=== PATIENT | female | born 2000 | race Caucasian/White ===

== ENCOUNTER 2023-02-21 04:03 | Emergency (ER) | payer BC, OTHER ==
[~2023-02-21] VITALS: Ht 165.1 cm; Wt 84.1 kg
[2023-02-21 04:09] VITALS: TEMP 98.1
[2023-02-21 04:23] LABS: BASO % 0.5 % (0.0-2.0); EOS # 0.1 K/mm3 (0.0-0.7); EOS % 1.7 % (0.0-4.0); GRAN # 3.4 K/mm3 (1.4-6.5); GRAN % 56.7 % (42.2-75.2); HEMOGLOBIN 11.9 g/dl (12.5-16.0); LYMPH # 1.9 K/mm3 (1.2-3.4); LYMPH % 31.1 % (20.0-51.0); MEAN CELL VOLUME 88 fl (80.0-100.0); MEAN CORPUSCULAR HEMOGLOBIN 28 pg (27-31); MEAN CORPUSCULAR HGB CONC 32 g/dl (33.0-37.0); MEAN PLATELET VOLUME 9.6 fl (7.4-10.4); MONO # 0.6 K/mm3 (0.1-0.6); MONO % 9.7 % (1.7-9.3); PLATELET COUNT 267 K/mm3 (130-400); REDCELL DISTRIBUTION WIDTH-CV 13.9 % (11.5-14.5)
[2023-02-21 04:25] LABS: HEMATOCRIT 36.9 % (37.0-47.0)
[2023-02-21 04:42] LABS: ALBUMIN 4.3 gm/dL (3.5-5.0); BILIRUBIN,TOTAL 0.5 mg/dL (0.2-1.2); CALCIUM 9.5 mg/dL (8.4-10.2); CREATININE, serum 0.89 mg/dL (0.57-1.11); POTASSIUM 3.4 mmol/L (3.5-4.5); TOTAL PROTEIN 7.7 gm/dL (6.2-8.1)
[2023-02-21 04:43] LABS: COLLECTION METHOD CLEAN CATCH
[2023-02-21 05:02] LABS: PH 7.5 (5.0-8.5); URINE APPEARANCE Hazy (CLEAR/HAZY); URINE BACTERIA Many /hpf (NONE SEEN); URINE BLOOD 2+ (NEGATIVE); URINE COLOR Yellow (YELLOW); URINE GLUCOSE Negative (NEGATIVE); URINE KETONE TRACE (NEGATIVE); URINE NITRATE Positive (NEGATIVE); URINE PROTEIN(semi-quant) 1+ (NEGATIVE); URINE RBC 20-50 /hpf (0-2); URINE UROBILINOGEN 0.2 E.U/dL (0.2-1.0)
[2023-02-21] MEDS ORDERED: ZOFRAN ODT4 MG PO (06:17)
[2023-02-21] MEDS ORDERED: LEVAQUIN 750MG750 M1 PO (06:17)
[2023-02-21 06:30] VITALS: BP 124/81; PULSE 95
== END 2023-02-21 06:32 | disposition home or self-care (01) ==
LOC: COL.ER 04:03
PROVIDERS: Emergency Medicine
DX: N39.0 Urinary tract infection, site not specified (principal); F17.210 Nicotine dependence, cigarettes, uncomplicated
CPT/HCPCS: J1885; J2405; J7120; Q9967